=== PATIENT | female | born 1990 | race African-American/Black ===

== ENCOUNTER 2018-05-29 06:42 | Inpatient (IN) | payer OTHER ==
[~2018-05-29] VITALS: Ht 165.1 cm; Wt 56.7 kg
[~2018-05-29 06:42] MED LIST: VITA400C19 MT; [UNRECOGNIZED DRUG - CODE]
[2018-05-29] MEDS ORDERED: ONDANSETRON HCL 4MG/2ML INJ IV STA (07:17)
[2018-05-29] MEDS ORDERED: MORPHINE SULFATE 4 MG/ML CPJ (NOT FOR IM USE) IV STA (07:17)
[2018-05-29 07:38] LABS: HEMATOCRIT. 36.2 % (36.0-48.0); HEMOGLOBIN. 12.2 g/dL (12.0-16.0); MEAN CORPUSCULAR HEMOGLOBIN 31.3 pg (28.0-32.0); MEAN CORPUSCULAR VOLUME 92.5 fL (81.0-99.0); MEAN PLATELET VOLUME 6.3 fl (7.4-10.4); PLATELET 643 x1000/uL (130-400); RED BLOOD CELL COUNT 3.91 mill/uL (4.2-5.4)
[2018-05-29 07:45] LABS: CHLORIDE 99 mEq/L (98-107)
[2018-05-29 07:47] LABS: PROTHROMBIN TIME 10.2 sec (9.1-11.1)
[2018-05-29 07:52] LABS: HCG SCREEN NEGATIVE
[2018-05-29 08:38] LABS: PLATELET ESTIMATE INCREASED
[2018-05-29 10:33] LABS: CLARITY URINE CLEAR (CLEAR); COLOR URINE YELLOW (YELLOW); KETONES URINE NEGATIVE (NEGATIVE); LEUKOCYTE ESTERASE URINE TRACE (NEGATIVE); NITRITE URINE NEGATIVE (NEGATIVE); OCCULT BLOOD URINE TRACE (NEGATIVE); PH URINE 7.5 (4.5-8.0); PROTEIN URINE NEGATIVE (NEGATIVE); SPECIFIC GRAVITY URINE 1.041 (1.005-1.030)
[2018-05-29] MEDS ORDERED: HYDROCODONE/ACETAMINOPHEN 5/325MG TABLET PO ONE (11:45)
[2018-05-29] MEDS ORDERED: DOCUSATE SODIUM 100MG CAPSULE PO PRN (13:30)
[2018-05-29] MEDS ORDERED: ONDANSETRON HCL 4MG/2ML INJ IV PRN (13:30)
[2018-05-29] MEDS ORDERED: GUAIFENESIN 200MG/10ML SUGAR FREE UDC PO PRN (13:30)
[2018-05-29] MEDS ORDERED: ACETAMINOPHEN 325MG TABLET PO PRN (13:30)
[2018-05-29] MEDS ORDERED: MAGNESIUM/ALUMINUM HYDROXIDE/SIMETHICONE 30ML UDC PO PRN (13:30)
[2018-05-29] MEDS ORDERED: CLONIDINE 0.1MG TABLET PO PRN (13:30)
[2018-05-29 14:00] VITALS: BP 132/64
[2018-05-29] MEDS ORDERED: LEVOFLOXACIN 500MG PREMIX 100 ML IV SCH (15:00)
[2018-05-29] MEDS: HYDROCODONE/ACETAMINOPHEN 5/325MG TABLET PO PRN ×2 (16:13→23:30)
[2018-05-29] MEDS ORDERED: IOHEXOL-300 100 ML BOTTLE ONE (16:48)
[2018-05-29] MEDS: DIPHENHYDRAMINE 50MG/ML VIAL IV PRN (18:50)
[2018-05-29 20:00] VITALS: BP 118/70
[2018-05-29] MEDS ORDERED: IBUP-2271 MT (20:06)
[2018-05-29] MEDS ORDERED: VITA100T3 PO (20:06)
[2018-05-29] MEDS ORDERED: TRAM150C25 MT (20:06)
[2018-05-29] MEDS: MORPHINE SULFATE 4 MG/ML CPJ (NOT FOR IM USE) IV PRN (20:34)
[2018-05-30] VITALS: BP 102/69
[2018-05-30] MEDS: DIPHENHYDRAMINE 50MG/ML VIAL IV PRN ×2 (01:12→12:26)
[2018-05-30] MEDS: MORPHINE SULFATE 4 MG/ML CPJ (NOT FOR IM USE) IV PRN ×3 (01:30→14:09)
[2018-05-30 04:00] VITALS: BP 124/76
[2018-05-30 06:29] LABS: BASOPHILS % 0.3 % (0.0-2.0); EOSINOPHILS % 13.4 % (0.0-5.0); HEMATOCRIT. 34.7 % (36.0-48.0); HEMOGLOBIN. 11.7 g/dL (12.0-16.0); LYMPHOCYTES % 16.3 % (20.0-50.0); MEAN CORPUSCULAR HEMOGLOBIN 31.2 pg (28.0-32.0); MEAN CORPUSCULAR VOLUME 92.9 fL (81.0-99.0); MEAN PLATELET VOLUME 6.9 fl (7.4-10.4); MONOCYTES % 5.7 % (2.0-8.0); NEUTROPHILS % 64.3 % (40.0-76.0); PLATELET 616 x1000/uL (130-400); RED BLOOD CELL COUNT 3.74 mill/uL (4.2-5.4); RED CELL DISTRIBUTION WIDTH 14.2 % (11.6-14.6)
[2018-05-30 07:04] LABS: CHLORIDE 97 mEq/L (98-107)
[2018-05-30 08:00] VITALS: BP 104/68
[2018-05-30 12:00] VITALS: BP 114/84
[2018-05-30] MEDS ORDERED: LORAZEPAM 2MG/ML CPJ IV PRN (13:15)
[2018-05-30 14:09] VITALS: BP 127/70
[2018-05-30] MEDS ORDERED: LEVOFLOXACIN 500MG PREMIX 100 ML IV SCH ×2 (15:00→17:30)
[2018-05-30] MEDS ORDERED: VANCOMYCIN 1 G PREMIX 200 ML IV NR (18:30)
[2018-05-31] MEDS ORDERED: VANCOMYCIN 750 MG PREMIX 150 ML IV SCH (01:00)
== END 2018-05-30 18:05 | disposition left against medical advice (07) | DRG 721 ==
LOC: ER 06:42 → EDBEDREQ 10:33 → EDBEDREQTM 10:33 → ENRESERV 12:31 → 6EST 13:27
PROVIDERS: ADMIT Internal Medicine; ATTEND Internal Medicine
DX: T81.41XA Infection following a procedure, superficial incisional surgical site, initial encounter (principal); L02.211 Cutaneous abscess of abdominal wall; F12.10 Cannabis abuse, uncomplicated; L30.9 Dermatitis, unspecified; Z53.21 Procedure and treatment not carried out due to patient leaving prior to being seen by health care provider; Y83.8 Other surgical procedures as the cause of abnormal reaction of the patient, or of later complication, without mention of misadventure at the time of the procedure; F41.9 Anxiety disorder, unspecified; D64.9 Anemia, unspecified; F31.9 Bipolar disorder, unspecified; Z97.5 Presence of (intrauterine) contraceptive device; Z79.899 Other long term (current) drug therapy; Z88.0 Allergy status to penicillin; Z72.0 Tobacco use; Z71.6 Tobacco abuse counseling; Y92.89 Other specified places as the place of occurrence of the external cause
CPT/HCPCS: 36415; 74177; 83605; 84703; 93970; 96374; 96375; 99285; J1200; J1956; J2270; J2405; J3370; Q9967

== ENCOUNTER 2018-08-01 21:29 | Inpatient (IN) | payer MEDICAID, OTHER ==
[~2018-08-01] VITALS: Ht 165.1 cm; Wt 59.0 kg
[~2018-08-01 21:29] MED LIST changes: +IBUP-2271 MT; +TRAM150C25 MT; +VITA100T3 PO
[2018-08-01] MEDS ORDERED: LIDOCAINE HCL 1% 20ML VIAL (Pyxis) INJ INFIL ONE (22:45)
[2018-08-01] MEDS ORDERED: KETOROLAC 30MG/ML VIAL IV ONE (23:15)
[2018-08-02 00:54] LABS: CLARITY URINE CLEAR (CLEAR); COLOR URINE YELLOW (YELLOW); KETONES URINE NEGATIVE (NEGATIVE); LEUKOCYTE ESTERASE URINE 1+ (NEGATIVE); NITRITE URINE NEGATIVE (NEGATIVE); OCCULT BLOOD URINE 1+ (NEGATIVE); PROTEIN URINE NEGATIVE (NEGATIVE); SPECIFIC GRAVITY URINE 1.009 (1.005-1.030); UROBILINOGEN URINE 0.2 E.U./dL (0.2-1.0)
[2018-08-02] MEDS ORDERED: MORPHINE SULFATE 4 MG/ML CPJ (NOT FOR IM USE) IV ONE ×3 (01:00→06:00)
[2018-08-02 01:01] LABS: BASOPHILS % 0.5 % (0.0-2.0); EOSINOPHILS % 0.6 % (0.0-5.0); HEMATOCRIT. 40.6 % (36.0-48.0); HEMOGLOBIN. 13.4 g/dL (12.0-16.0); LYMPHOCYTES % 24.4 % (20.0-50.0); MEAN CORPUSCULAR HEMOGLOBIN 31.1 pg (28.0-32.0); MEAN CORPUSCULAR VOLUME 94.3 fL (81.0-99.0); MONOCYTES % 4.6 % (2.0-8.0); NEUTROPHILS % 69.9 % (40.0-76.0); PLATELET 255 x1000/uL (130-400); RED CELL DISTRIBUTION WIDTH 15.1 % (11.6-14.6)
[2018-08-02 01:05] LABS: CHLORIDE 109 mEq/L (98-107)
[2018-08-02 01:06] LABS: PARTIAL THROMBOPLASTIN TIME 28.2 sec (23.4-31.0)
[2018-08-02] MEDS ORDERED: CLONIDINE 0.1MG TABLET PO PRN (09:15)
[2018-08-02] MEDS ORDERED: DOCUSATE SODIUM 100MG CAPSULE PO PRN (09:15)
[2018-08-02] MEDS ORDERED: IPRATROPIUM/ALBUTEROL 0.5-3(2.5)MG/3ML NEB INH PRN (09:15)
[2018-08-02] MEDS ORDERED: ACETAMINOPHEN 325MG TABLET PO PRN (09:15)
[2018-08-02] MEDS ORDERED: LORAZEPAM 0.5MG TABLET PO PRN (09:15)
[2018-08-02] MEDS: MORPHINE SULFATE 4 MG/ML CPJ (NOT FOR IM USE) IV PRN ×3 (09:26→20:05)
[2018-08-02] MEDS: ONDANSETRON HCL 4MG/2ML INJ IV PRN ×2 (09:26→21:01)
[2018-08-02 10:18] LABS: HCG SCREEN NEGATIVE
[2018-08-02 10:30] VITALS: BP 119/75
[2018-08-02] MEDS ORDERED: HYDROCODONE/ACETAMINOPHEN 5/325MG TABLET PO PRN (12:30)
[2018-08-02] MEDS: HYDROCODONE/ACETAMINOPHEN 5/325MG TABLET PO PRN ×3 (12:48→23:09)
[2018-08-02] MEDS ORDERED: ENOXAPARIN 40MG/0.4ML SYR SUBCUT SCH (15:00)
[2018-08-02 16:00] VITALS: BP 136/90
[2018-08-02] MEDS: DEXT 5%/0.9% NACL 1,000 ML IV SCH (17:09)
[2018-08-02 20:00] VITALS: BP 114/75
[2018-08-03] VITALS: BP 125/75
[2018-08-03 04:00] VITALS: BP 117/81
[2018-08-03] MEDS: MORPHINE SULFATE 4 MG/ML CPJ (NOT FOR IM USE) IV PRN (05:16)
[2018-08-03] MEDS: DEXT 5%/0.9% NACL 1,000 ML IV SCH (05:20)
[2018-08-03 08:00] VITALS: BP 116/81
[2018-08-03] MEDS: HYDROCODONE/ACETAMINOPHEN 5/325MG TABLET PO PRN (09:22)
[2018-08-03 10:10] LABS: BASOPHILS % 0.4 % (0.0-2.0); EOSINOPHILS % 1.6 % (0.0-5.0); HEMATOCRIT. 38.1 % (36.0-48.0); HEMOGLOBIN. 12.6 g/dL (12.0-16.0); LYMPHOCYTES % 22.7 % (20.0-50.0); MEAN CORPUSCULAR HEMOGLOBIN 31.3 pg (28.0-32.0); MEAN CORPUSCULAR VOLUME 94.7 fL (81.0-99.0); MEAN PLATELET VOLUME 8.2 fl (7.4-10.4); MONOCYTES % 8.5 % (2.0-8.0); NEUTROPHILS % 66.8 % (40.0-76.0); PLATELET 223 x1000/uL (130-400); RED BLOOD CELL COUNT 4.03 mill/uL (4.2-5.4); RED CELL DISTRIBUTION WIDTH 15.2 % (11.6-14.6)
[2018-08-03 10:24] LABS: CHLORIDE 102 mEq/L (98-107)
[2018-08-03 12:00] VITALS: BP 131/85
[2018-08-03 13:23] VITALS: BP 131/85
[2018-08-03 14:19] LABS: *AMPHETAMINES SCREEN URINE NEGATIVE (NEGATIVE); *BARBITURATES SCREEN URINE NEGATIVE (NEGATIVE); *BENZODIAZEPINES SCREEN URINE NEGATIVE (NEGATIVE); *COCAINE SCREEN URINE NEGATIVE (NEGATIVE); METHADONE URINE SCREEN NEGATIVE (NEGATIVE)
[2018-08-03 14:20] LABS: CANNABINOID URINE SCREEN PRESUMTIVE POSITIVE (NEGATIVE); OPIATES URINE SCREEN NEGATIVE (NEGATIVE); PHENCYCLIDINE URINE SCREEN NEGATIVE (NEGATIVE)
== END 2018-08-03 14:25 | disposition home or self-care (01) | DRG 342 ==
LOC: ER 22:06 → 6EST 08-02 01:31 → ENRESERV 08-02 04:20 → CANRESERV 08-02 04:20 → EDBEDREQ 08-02 08:32 → ENRESERV 08-02 09:49
PROVIDERS: ADMIT Internal Medicine; ATTEND Internal Medicine
DX: S82.142A Displaced bicondylar fracture of left tibia, initial encounter for closed fracture (principal); E87.8 Other disorders of electrolyte and fluid balance, not elsewhere classified; W01.0XXA Fall on same level from slipping, tripping and stumbling without subsequent striking against object, initial encounter; W50.1XXA Accidental kick by another person, initial encounter; F12.90 Cannabis use, unspecified, uncomplicated; F32.9 Major depressive disorder, single episode, unspecified; F41.9 Anxiety disorder, unspecified; L30.9 Dermatitis, unspecified; Y93.89 Activity, other specified; Y92.89 Other specified places as the place of occurrence of the external cause; Y99.8 Other external cause status; Z88.0 Allergy status to penicillin; Z79.899 Other long term (current) drug therapy
CPT/HCPCS: 29505; 36415; 73562; 73700; 80048; 80305; 84703; 96374; 96375; 99285; J1650; J1885; J2270; J2405; J3490; J7042